=== PATIENT | female | born 1985 | race African-American/Black ===

== ENCOUNTER 2022-11-18 08:18 | Outpatient (REF) | payer OTHER, SELFPAY ==
[2022-11-18 12:16] LABS: MANUAL DIFF FLAG NO
[2022-11-18 12:24] LABS: Basophils Absolute Auto 0.1 X10*3/uL (0.0-0.2); Basophils Percent Auto 0.4 % (0-2); Eosinophils Absolute Auto 0.2 X10*3/uL (0.0-0.4); Eosinophils Percent Auto 1.4 % (0-4); Hemoglobin 11.4 g/dl (12.0-16.0); Imm Gran Abs Auto 0.04 X10*3/uL (0.00-0.03); Imm Gran Pct Auto 0.3 % (0.0-0.4); Lymphocytes Absolute Auto 2.9 X10*3/uL (1.2-4.9); Lymphocytes Percent Auto 24.8 % (20-40); Mean Corpuscular Hemoglobin 22.8 pg (27.0-33.0); Mean Platelet Volume 10.7 fL (9.4-12.3); Monocytes Absolute Auto 0.8 X10*3/uL (0.1-1.2); Monocytes Percent Auto 7.3 % (2-11); Neutrophils Absolute Auto 7.5 x10*3/uL (2.0-8.3); Neutrophils Percent Auto 65.8 % (45-73); Platelet Count 363 X10*3/uL (160-400); Red Cell Distribution Width 18.8 % (11.0-16.0); White Blood Count 11.5 X10*3/uL (4.8-10.8)
[2022-11-18 12:50] LABS: Alanine Aminotransferase 9 U/L (0-31); Albumin Level 3.9 g/dL (3.5-5.0); Alkaline Phosphatase 56 U/L (39-117); Anion Gap 13 (12-20); Aspartate Amino Transferase 14 U/L (5-31); Bilirubin Total 0.5 mg/dL (0.0-1.0); Blood Urea Nitrogen 10 mg/dL (9-16); Carbon Dioxide 25 mmol/L (22-29); Chloride 106 mmol/L (96-108); Cholesterol 206 mg/dL; Estimated Glomerular Filt Rate > 60; Glucose Fasting 122 mg/dL (60-99); HDL Cholesterol 44 mg/dL; LDL Cholesterol Calculated 143 mg/dl; Potassium 4.2 mmol/L (3.3-5.1); Sodium 140 mmol/L (135-145); Total Protein 7.6 g/dL (6.5-8.0); Triglycerides 98 mg/dL
== END 2022-11-18 08:19 | disposition home or self-care (01) ==
LOC: HO.HMGCLDS 08:18
PROVIDERS: PCP Internal Medicine; Visit Provider Internal Medicine
DX: Z00.01 Encounter for general adult medical examination with abnormal findings (principal); E66.09 Other obesity due to excess calories; F84.0 Autistic disorder; Z11.1 Encounter for screening for respiratory tuberculosis
CPT/HCPCS: 36415; 80053; 80061; 84443; 85025

== ENCOUNTER 2022-11-20 09:18 | Outpatient (REF) | payer OTHER, SELFPAY ==
[2022-11-23 00:53] LABS: TS Negative Control Passed; TS Panel A 0; TS Panel B 0; TS Positive Control Passed; TSpotTB Negative (Negative)
== END 2022-11-20 09:19 | disposition home or self-care (01) ==
LOC: HO.HMGCLDS 09:18
PROVIDERS: PCP Internal Medicine; Visit Provider Internal Medicine
DX: Z11.1 Encounter for screening for respiratory tuberculosis (principal)
CPT/HCPCS: 36415; 86481

== ENCOUNTER 2023-08-30 08:27 | Outpatient (AMB) | payer OTHER, SELFPAY ==
--- NOTE | 2023-08-30 08:32 | A.OFFPC_ITS ---
Intake Visit Reasons: Dental Forms~ Allergies No Known Allergies Allergy (Verified 11/14/22 15:31) Medication List - Last Reconciled 08/30/23 by Juan Garzon MD No Known Home Meds Tobacco use date assessed: 11/14/22 HPI Dental Forms~ HPI Details Patient is 38-year-old female with autism, nonverbal She is in need of dental procedure due to gum disease Patient need clearance for that, and paperwork. This visit was created to update her history. Patient have no cardiac history, no fever no chills The only thing changed is her weight , she now we 206 lb Her last visit with me was October of last year, her weight was 226 at that time Forms are filled, information updated, we will fax it over to dental office. [facility] Social History Patient Tobacco Use Status: Never used Tobacco e-Cigarette/Vaping Use: Never Used Current occupational status: disabled Questionnaire Thrive Questionnaire Date Thrive assessed: 05/24/21 Review of Systems Const Denies chills and Denies fever(s) ENT Denies epistaxis and Denies nasal discharge Card Denies chest pain Resp Denies chest congestion, Denies cough and Denies hemoptysis GI Denies diarrhea and Denies nausea Skin/Breast Denies rash Neuro Reports no additional complaints Psych Reports no additional complaints Endo Reports no additional complaints Physical exam (Primary Care) Tobacco/Smoking Status: Tobacco use Status Tobacco use date assessed 11/14/22 08/30/23 08:35 Patient Tobacco Use Status Never used Tobacco 08/30/23 08:35 e-Cigarette/Vaping Use Never Used 08/30/23 08:35 Thrive Assessment: Date of Thrive Assessment Date Thrive assessed 05/24/21 08/30/23 08:35 Telehealth Telehealth Location of provider rendering services: practice address Location of patient: address on file Patient Identification confirmed using: Name, : Yes Telehealth method: voice only Patient verbally consented to treatment: Yes Patient verbally consented to billing insurance company: Yes Patient informed of any privacy concerns related to visit: Yes Minutes spent on Phone/Video with Pt.: 13 Assessment and Plan Assessment & Plan (1) Gum disease: Code(s): K06.9 - Disorder of gingiva and edentulous alveolar ridge, unspecified (2) Autism: Code(s): F84.0 - Autistic disorder (3) Nonverbal: Code(s): R47.01 - Aphasia Plan Patient is 38-year-old female with autism, nonverbal She is in need of dental procedure due to gum disease Patient need clearance for that, and paperwork. This visit was created to update her history. Patient have no cardiac history, no fever no chills The only thing changed is her weight , she now we 206 lb Her last visit with me was October of last year, her weight was 226 at that time Forms are filled, information updated, we will fax it over to dental office. Coding Level of Care Code Tele Est Pt Level 3 (70827) Diagnoses Gum disease K06.9 Autism F84.0 Nonverbal R47.01
== END 2023-08-30 15:52 | disposition home or self-care (01) ==
LOC: HO.HMGC 08:27
PROVIDERS: PCP Internal Medicine; Visit Provider Internal Medicine
DX: K06.9 Disorder of gingiva and edentulous alveolar ridge, unspecified (principal); R47.01 Aphasia
CPT/HCPCS: 99213

== ENCOUNTER 2023-11-20 15:21 | Outpatient (AMB) | payer OTHER, SELFPAY ==
--- NOTE | 2023-11-20 15:28 | A.OFFPC_ITS ---
Vital Signs 11/20/23 15:29 Height 5 ft 7 in Weight 230 lb 2 oz BMI 36.0 BP 126/78 Blood Pressure Location Rt brachial Position Sitting Pulse 84 Pulse Source Pulse Oximeter Pulse Oximetry (%) 99 Oxygen Delivery Method Room Air Intake Visit Reasons: PE Allergies No Known Allergies Allergy (Verified 11/14/22 15:31) Medication List - Last Reconciled 11/20/23 by Juan Garzon MD No Known Home Meds Tobacco use date assessed: 11/20/23 Dental Screening Dental Screen Date: 11/20/23 Did you have a dental visit in the last 12 months?: Yes Did you have a dental problem in the last 6 months where you did not have access to dental care?: No Was dental information given to patient?: Patient has dentist HPI PE HPI Details Patient is a 38-year-old female with autism and is nonverbal came in today for her physical examination with her mother Last year patient had labs her fasting sugar was elevated We will be repeating labs again, mother was notified of the results It is difficult for patient to go through a gynecological exam, she declined to do breast exam as well Her mother feels that we can hold onto gynecological exam for now They do take family trips and mother is requesting few tablets of lorazepam so it is easier for her to handle patient has tantrums during those visits Thirty tablets sent, side effect of medication reviewed with the mother including risk of fall Patient's BMI is elevated, it is difficult for her to lose weight Patient will return in 1 year for follow-up or earlier depending on lab reports. [facility] Social History Housing: House Patient Tobacco Use Status: Never used Tobacco e-Cigarette/Vaping Use: Never Used service: No Current occupational status: disabled Cognitive needs: No Hearing needs: No Vision needs: No Questionnaire PHQ-9 Over the last 2 weeks, how often have you been bothered by any of the following problems? 1. Little interest or pleasure in doing things: not at all 2. Feeling down, depressed, or hopeless: not at all 3. Trouble falling or staying asleep, or sleeping too much: not at all 4. Feeling tired or having little energy: not at all 5. Poor appetite or overeating: not at all 6. Feeling bad about yourself - or that you are a failure or have let yourself or your family down: not at all 7. Trouble concentrating on things, such as reading the newspaper or watching television: not at all 8. Moving or speaking so slowly that other people could have noticed. Or the opposite - being so fidgety or restless that you have been moving around a lot more than usual: not at all 9. Thoughts that you would be better off or of hurting yourself in some way: not at all Total score: 0 Depression Screening Interpretation: Negative Depression Screening Done: Yes 00010 - PHQ-9 Billing: Yes Source: Developed by Drs. Urbano Smith, Jaelyn Grover, Selvin Arnett and colleagues, with an educational patricia from [employer]. Thrive Questionnaire Date Thrive assessed: 11/20/23 I am a: Patient What is your living situation today?: I have a steady place to live Within the past 12 months, did the food you bought not last and you didn't have the money to get more?: Often true Within the past 12 months, did you worry whether your food would run out before you got money to buy more?: Never true Do you have trouble paying for medicines?: No Do you have trouble getting transportation to medical appointments?: No Do you have trouble paying your heating and electricity bill?: No Do you have trouble taking care of your child, family member or friend?: No Do you have trouble with day-to-day activities such as bathing, preparing meals, shopping, managing finances, etc.?: No Are you currently unemployed and looking for a job?: No Are you interested in more education?: No Please select the resources that you would like help with: None Currently or been in a relationship where the following occur: no concerns reported THRIVE Score: 1 AUDIT C Alcohol Use Questionnaire (AUDIT-C) 1. How often do you have a drink containing alcohol?: Never 3. How often do you have six or more drinks on one occasion?: Never Total Score: 0 Score Reviewed/Action Taken: Yes ALYCIA-7 AMB Questionnaire ALYCIA-7 Date ALYCIA - 7 assessed: 11/20/23 Feeling nervous, anxious, or on edge: 0 = Not at all Not being able to stop or control worryin = Not at all Worrying too much about different things: 0 = Not at all Trouble relaxin = Not at all Being so restless that it is hard to sit still: 0 = Not at all Becoming easily annoyed or irritable: 0 = Not at all Feeling afraid as if something awful might happen: 0 = Not at all Total ALYCIA-7 score (0-4 normal; 5-9 mild; 10-14 moderate; 15-21 severe): 0 Source: Developed by Drs. Urbano Smith, Jaelyn Grover, Selvin Arnett and colleagues, with an educational patricia from [employer]. ALYCIA-7 Assessment Billing ALYCIA-7 Assessment Tool: ALYCIA-7 Assessment 80371 Review of Systems Const Denies chills and Denies fever(s) ENT Denies epistaxis and Denies nasal discharge Card Denies chest pain Resp Denies chest congestion, Denies cough and Denies hemoptysis GI Denies diarrhea and Denies nausea Skin/Breast Denies rash Neuro Reports no additional complaints Psych Reports no additional complaints Endo Reports no additional complaints Physical exam (Primary Care) Vital Signs: Last Vital Signs Pulse 84 11/20/23 15:29 BP 126/78 11/20/23 15:29 Pulse Ox 99 11/20/23 15:29 Oxygen Delivery Method Room Air 11/20/23 15:29 BMI result Body Mass Index 36.0 Tobacco/Smoking Status: Tobacco use Status Tobacco use date assessed 11/20/23 11/20/23 15:34 Patient Tobacco Use Status Never used Tobacco 11/20/23 15:34 e-Cigarette/Vaping Use Never Used 11/20/23 15:34 PHQ-9: PHQ-9 Score PHQ-9: Total score 0 11/20/23 15:51 Depression Screening Interpretation: Negative Thrive Assessment: Date of Thrive Assessment Date Thrive assessed 11/20/23 11/20/23 15:51 Currently or been in a relationship where the following occur: no concerns reported Const Other: Nonverbal, not very cooperative, did not let me do abdominal exam or breast exams, exam is limited General: comfortable and no acute distress HENMT Head: Yes normocephalic Eyes General: appearance normal, both eyes and all related structures Neck Neck: Yes supple Resp Effort & Inspection: normal respiratory effort, no cough and no stridor Cardio Rhythm: regular rhythm Heart sounds: S1 normal heart sound present and S2 normal heart sound present Skin General skin exam: turgor normal Neuro General: tone normal and moves all extremities Extrem Right lower extremity: no edema Left lower extremity: no edema Assessment and Plan Assessment & Plan (1) Encounter for general adult medical examination with abnormal findings: Code(s): Z00.01 - Encounter for general adult medical examination with abnormal findings (2) Gum disease: Code(s): K06.9 - Disorder of gingiva and edentulous alveolar ridge, unspecified (3) Nonverbal: Code(s): R47.01 - Aphasia (4) Obesity due to excess calories: Code(s): E66.09 - Other obesity due to excess calories Qualifiers: Obesity classification: adult class 2 (BMI 35 - 39.9) Serious obesity comorbidity presence: without serious comorbidity Body mass index: BMI 36.0- 36.9 Qualified Code(s): E66.09 - Other obesity due to excess calories; Z68.36 - Body mass index [BMI] 36.0-36.9, adult (5) Autism: Code(s): F84.0 - Autistic disorder (6) Impaired fasting blood sugar: Code(s): R73.01 - Impaired fasting glucose (7) Screening-pulmonary TB: Code(s): Z11.1 - Encounter for screening for respiratory tuberculosis Plan Patient is a 38-year-old female with autism and is nonverbal came in today for her physical examination with her mother Last year patient had labs her fasting sugar was elevated We will be repeating labs again, mother was notified of the results It is difficult for patient to go through a gynecological exam, she declined to do breast exam as well Her mother feels that we can hold onto gynecological exam for now They do take family trips and mother is requesting few tablets of lorazepam so it is easier for her to handle patient has tantrums during those visits Thirty tablets sent, side effect of medication reviewed with the mother including risk of fall Patient's BMI is elevated, it is difficult for her to lose weight Patient will return in 1 year for follow-up or earlier depending on lab reports. Orders: Orders Comprehensive [place]. Panel Fast Today E66.09 - Other obesity due to excess calories, F84.0 - Autistic disorder, K06.9 - Disorder of gingiva and edentulous alveolar ridge, unspecified, R47.01 - Aphasia, R73.01 - Impaired fasting glucose, Z00.01 - Encounter for general adult medical examination with abnormal findings Lipid Panel Today E66.09 - Other obesity due to excess calories, F84.0 - Autistic disorder, K06.9 - Disorder of gingiva and edentulous alveolar ridge, unspecified, R47.01 - Aphasia, R73.01 - Impaired fasting glucose, Z00.01 - Encounter for general adult medical examination with abnormal findings Hemoglobin A1c Today E66.09 - Other obesity due to excess calories, F84.0 - Autistic disorder, K06.9 - Disorder of gingiva and edentulous alveolar ridge, unspecified, R47.01 - Aphasia, R73.01 - Impaired fasting glucose, Z00.01 - Encounter for general adult medical examination with abnormal findings T Spot TB Today Z11.1 - Encounter for screening for respiratory tuberculosis Complete Blood Count Auto Diff Today E66.09 - Other obesity due to excess calories, F84.0 - Autistic disorder, K06.9 - Disorder of gingiva and edentulous alveolar ridge, unspecified, R47.01 - Aphasia, R73.01 - Impaired fasting glucose, Z00.01 - Encounter for general adult medical examination with abnormal findings Medications: New lorazepam 0.5 mg PO DAILY PRN 30 tabs 0RF anxiety Coding Level of Care Code Est Pt Prev Care 18-39y(33432) Diagnoses Encounter for general adult medical examination with abnormal findings Z00.01 Gum disease K06.9 Nonverbal R47.01 Class 2 obesity due to excess calories without serious comorbidity with body mass index (BMI) of 36.0 to 36.9 in adult E66.09; Z68.36 Obesity classification: adult class 2 (BMI 35 - 39.9) Serious obesity comorbidity presence: without serious comorbidity Body mass index: BMI 36.0-36.9 Autism F84.0 Impaired fasting blood sugar R73.01 Screening-pulmonary TB Z11.1 Additional Codes ALYCIA-7 Assessment Billing - ALYCIA-7 Assessment Tool: ALYCIA-7 Assessment [id number] ([id number])
[2023-11-20 15:29] VITALS: BP 126/78; PULSE 84; O2SAT 99; BMI 36.0
== END 2023-11-20 16:00 | disposition home or self-care (01) ==
LOC: HO.HMGC 15:21
PROVIDERS: PCP Internal Medicine; Visit Provider Internal Medicine
DX: Z00.00 Encounter for general adult medical examination without abnormal findings (principal); K06.9 Disorder of gingiva and edentulous alveolar ridge, unspecified; E66.09 Other obesity due to excess calories; Z68.36 Body mass index [BMI] 36.0-36.9, adult; R47.01 Aphasia; F84.0 Autistic disorder; R73.01 Impaired fasting glucose; Z11.1 Encounter for screening for respiratory tuberculosis
CPT/HCPCS: 99395

== ENCOUNTER 2024-05-06 14:55 | Outpatient (AMB) | payer OTHER, SELFPAY ==
--- NOTE | 2024-05-06 14:59 | MHC.OFFWIV ---
Intake Vital Signs 05/06/24 15:01 Height 5 ft 7 in Weight 233 lb BMI 36.5 BP 132/88 Blood Pressure Location Lt brachial Position Sitting Pulse 92 Pulse Source Pulse Oximeter Temp 97.0 F Temp Source Temporal Artery Scan Pulse Oximetry (%) 98 Oxygen Delivery Method Room Air Intake Visit Reasons: EP RT foot swelling/bruised top/red between toes Intake Note: pt c/o RT foot swollen and bruised. Patient Tobacco Use Status: Never used Tobacco Allergies No Known Allergies Allergy (Verified 05/06/24 15:15) Do you need a note to return to daycare/school/sports/work: No HPI HPI Comments History of Present Illness Details This is a 38-year-old female with a past medical history of autism who was nonverbal presenting with her mother for evaluation of lesions on the plantar surface of her right foot that were 1st noted last Sunday. There is no report of injury or trauma to the right foot and the patient is not having any difficulty ambulating. The patient's mother has not used any [id number] medication for treatment of these lesions. [facility] Social History Housing: House Patient Tobacco Use Status: Never used Tobacco e-Cigarette/Vaping Use: Never Used service: No Current occupational status: disabled Cognitive needs: No Hearing needs: No Vision needs: No Review of Systems Const Other (Patient has autism and is non.verbal.) Physical Exam Vital Signs: Last Vital Signs Pulse 92 05/06/24 15:01 BP 132/88 05/06/24 15:01 Pulse Ox 98 05/06/24 15:01 Oxygen Delivery Method Room Air 05/06/24 15:01 BMI result Body Mass Index 36.5 Const General: cooperative, healthy appearing, comfortable, no acute distress, well developed, alert, awake and Physically active; No ill appearing Nutritional Appearance: overweight Orientation/consciousness: Other orientation findings (non.verbal) Limitations: no limitations and other limitations (Autism) Skin Other: Macerated hypopigmented lesions and ulcerations on an erythematous base on the planter surface of the right distal foot and web spaces between digits 2-3, 3-4 and 4-5. Non.tender to direct examination. No lesions noted on dorsal surface of the right foot. Extrem Other: Ambulating independently; no pain to examination of the right foot or digits of the right foot. Assessment & Plan Assessment & Plan (1) Tinea pedis: Comment: Patient's examination is consistent with a tinea pedis of the right foot will be prescribed clotrimazole. Code(s): B35.3 - Tinea pedis Qualifiers: Laterality: right Qualified Code(s): B35.3 - Tinea pedis Plan: Clotrimazole 1% b.i.d. x4 weeks. Medications: New clotrimazole 1% Apply to affected areas on right foot twice daily for four weeks. 1 appl topical BID 45 grams 1RF Coding Level of Care Code Est Pt Level 3 (36579) Diagnoses Tinea pedis of right foot B35.3 Laterality: right Time Spent (min) 20
[2024-05-06 15:01] VITALS: BP 132/88; PULSE 92; TEMP 36.1; O2SAT 98; BMI 36.5
== END 2024-05-06 15:45 | disposition home or self-care (01) ==
PROVIDERS: PCP Internal Medicine; Visit Provider Physician Assistant
DX: B35.3 Tinea pedis (principal)

== ENCOUNTER → 2024-05-06 14:55 | Outpatient (BNVA) | payer OTHER, SELFPAY | PROVIDERS: PCP Internal Medicine | DX: B35.3 Tinea pedis (principal) | CPT/HCPCS: 99212 ==

== ENCOUNTER 2024-12-19 14:33 | Outpatient (REF) | payer OTHER, SELFPAY ==
[2024-12-19 16:01] LABS: MANUAL DIFF FLAG NO
[2024-12-19 16:18] LABS: Basophils Absolute Auto 0.1 X10*3/uL (0.0-0.2); Basophils Percent Auto 0.5 % (0-2); Eosinophils Absolute Auto 0.2 X10*3/uL (0.0-0.4); Eosinophils Percent Auto 1.5 % (0-4); Hematocrit 35.7 % (37.0-47.0); Hemoglobin 10.6 g/dl (12.0-16.0); Imm Gran Abs Auto 0.07 X10*3/uL (0.00-0.03); Imm Gran Pct Auto 0.5 % (0.0-0.4); Lymphocytes Absolute Auto 4.7 X10*3/uL (1.2-4.9); Lymphocytes Percent Auto 31.7 % (20-40); Mean Corpuscular HGB Conc 29.7 g/dl (31.0-35.0); Mean Corpuscular Hemoglobin 21.1 pg (27.0-33.0); Monocytes Absolute Auto 1.4 X10*3/uL (0.1-1.2); Monocytes Percent Auto 9.4 % (2-11); Neutrophils Absolute Auto 8.4 x10*3/uL (2.0-8.3); Neutrophils Percent Auto 56.4 % (45-73); Platelet Count 332 X10*3/uL (160-400); Red Blood Count 5.03 X10*6/uL (4.20-5.50); White Blood Count 14.9 X10*3/uL (4.8-10.8)
[2024-12-19 16:22] LABS: Estimated Average Glucose 146 mg/dL; Hemoglobin A1C 138.4312 umol/L; Hemoglobin A1c % 6.7 % (<6.0); Total Hemoglobin (HGBA1C) 2803.2599 umol/L
[2024-12-19 16:46] LABS: Alanine Aminotransferase 11 U/L (0-31); Albumin Level 4.1 g/dL (3.5-5.0); Anion Gap 12 (12-20); Aspartate Amino Transferase 17 U/L (5-31); Bilirubin Total 0.1 mg/dL (0.0-1.0); Blood Urea Nitrogen 10 mg/dL (9-16); Calcium 9.6 mg/dL (8.4-10.2); Carbon Dioxide 26 mmol/L (22-29); Chloride 105 mmol/L (96-108); Estimated Glomerular Filt Rate > 60; Glucose Random 119 mg/dL (60-115); Potassium 3.7 mmol/L (3.3-5.1); Sodium 139 mmol/L (135-145); Total Protein 8.3 g/dL (6.5-8.0)
[2024-12-19 16:49] LABS: Alkaline Phosphatase 63 U/L (39-117)
[2024-12-19 16:59] LABS: TSH reflex Free T4 3.55 uIU/mL (0.32-4.0)
[2024-12-20 07:29] LABS: LDL Cholesterol Direct 135 mg/dL (<100)
[2024-12-24 14:43] LABS: Vitamin D 25-OH, D2 <4 ng/mL; Vitamin D 25-OH, D3 20 ng/mL; Vitamin D 25-OH, Total 20 ng/mL (30-100)
== END 2024-12-19 14:34 | disposition home or self-care (01) ==
LOC: HO.HMGCLDS 14:33
PROVIDERS: PCP Internal Medicine; Visit Provider Internal Medicine
DX: Z00.01 Encounter for general adult medical examination with abnormal findings (principal); R73.01 Impaired fasting glucose; E66.09 Other obesity due to excess calories; Z68.36 Body mass index [BMI] 36.0-36.9, adult; F84.0 Autistic disorder; M79.671 Pain in right foot; M79.672 Pain in left foot
CPT/HCPCS: 36415; 80053; 82306; 83036; 83721; 84443; 85025; 96127; 99396

== ENCOUNTER 2024-12-19 14:33 | Outpatient (AMB) | payer OTHER, SELFPAY ==
[2024-12-19 14:33] VITALS: BP 136/84; PULSE 90; O2SAT 98; BMI 35.7
--- NOTE | 2024-12-19 14:33 | A.OFFPC_ITS ---
Vital Signs 12/19/24 14:33 Height 5 ft 7 in Weight 228 lb BMI 35.7 BP 136/84 Blood Pressure Location Rt brachial Position Sitting Pulse 90 Pulse Source Pulse Oximeter Pulse Oximetry (%) 98 Oxygen Delivery Method Room Air Intake Visit Reasons: Annual pe Golf Caddy Required: No Accompanied by: Self / Same As Patient Allergies No Known Allergies Allergy (Verified 12/19/24 14:33) Medication List - Last Reconciled 12/19/24 by Juan Garzon MD clotrimazole 1% 1 appl topical BID lorazepam 0.5 mg PO DAILY PRN Tobacco use date assessed: 12/19/24 Dental Screening Dental Screen Date: 12/19/24 Did you have a dental visit in the last 12 months?: Yes Did you have a dental problem in the last 6 months where you did not have access to dental care?: No Was dental information given to patient?: Patient has dentist HPI Annual pe HPI Details History of Present Illness - The patient is a 39-year-old female no n verbal with history of autism presenting for a wellness visit and preventive screenings. With her mother - During the visit, discussions involved the patient's first mammogram, emphasizing compliance difficulties due to required breath-holding and stillnes s. Patient is autistic and it might be difficult - There were challenges observed in comp liance with internal pelvic exams, with a mention of the patient's resistance and need for sedation during dental procedures. - Foot pain was noted to occur during wa lking, especially after walking half a mile. Potential causes were considered, such as walking on tippy toes. - The patient exhibits protective behavi ors during breast examination, limiting assessment capabilities. Health Maintenance - Mammogram ordered as the patient is du e for her first screening at age 39. - Discussion occurred on the importance of standing still and breath-holding during the mammogram procedure. - Consideration of foot care with potent ial recommendation adjustments to footwear for better support. - BMI is elevated need to lose weight Patient Instructions - Change shoes to ones with more support and cushioning. - see a foot doctor evaluation if pain during walking persists. - Proceed with lab tests that have been ordered. - Follow through with scheduling the [facility] mogram and attend alongside support for better compliance. Review of Systems Difficult to access as patient is nonverbal Physical Exam General: Cooperative, healthy appearing, comfortable, no acute distress Orientation: Recognizes mother Head: Normal to inspection Ears: Within normal limit visually Nose: Normal external nose present Eyes: Appearance normal, extraocular movement intact pupils reactive Neck: Normal visual inspection and supple Respiratory: Normal respiratory effort , patient is not taking deep breaths on command Cardiovascular: S1 and S2 RRR GI: Normal to inspection. Soft to palpation and nontender Skin: Turgor normal, no acute findings Neuro: Nonfocal Extremities: Normal to inspection, foot exam reveals no abnormality over the soles [facility] Surgical History No pertinent past surgical history Social History Housing: House Patient Tobacco Use Status: Never used Tobacco e-Cigarette/Vaping Use: Never Used service: No Current occupational status: disabled Cognitive needs: No Hearing needs: No Vision needs: No Questionnaire PHQ-9 Over the last 2 weeks, how often have you been bothered by any of the following problems? 1. Little interest or pleasure in doing things: not at all 2. Feeling down, depressed, or hopeless: not at all 3. Trouble falling or staying asleep, or sleeping too much: not at all 4. Feeling tired or having little energy: not at all 5. Poor appetite or overeating: not at all 6. Feeling bad about yourself - or that you are a failure or have let yourself or your family down: not at all 7. Trouble concentrating on things, such as reading the newspaper or watching television: not at all 8. Moving or speaking so slowly that other people could have noticed. Or the opposite - being so fidgety or restless that you have been moving around a lot more than usual: not at all 9. Thoughts that you would be better off or of hurting yourself in some way: not at all Total score: 0 Depression Screening Interpretation: Negative Depression Screening Done: Yes 75044 - PHQ-9 Billing: Yes Source: Developed by Drs. Urbano Smith, Jaelyn Grover, Selvin Arnett and colleagues, with an educational patricia from [employer]. Thrive Questionnaire Date Thrive assessed: 12/19/24 I am a: Patient What is your living situation today?: I have a steady place to live Within the past 12 months, did the food you bought not last and you didn't have the money to get more?: Often true Within the past 12 months, did you worry whether your food would run out before you got money to buy more?: Never true Do you have trouble paying for medicines?: No Do you have trouble getting transportation to medical appointments?: No Do you have trouble paying your heating and electricity bill?: No Do you have trouble taking care of your child, family member or friend?: No Do you have trouble with day-to-day activities such as bathing, preparing meals, shopping, managing finances, etc.?: No Are you currently unemployed and looking for a job?: No Are you interested in more education?: No Please select the resources that you would like help with: None THRIVE Score: 1 AUDIT C Alcohol Use Questionnaire (AUDIT-C) 1. How often do you have a drink containing alcohol?: Never 3. How often do you have six or more drinks on one occasion?: Never Total Score: 0 Score Reviewed/Action Taken: Yes ALYCIA-7 AMB Questionnaire ALYCIA-7 Date ALYCIA - 7 assessed: 12/19/24 Feeling nervous, anxious, or on edge: 0 = Not at all Not being able to stop or control worryin = Not at all Worrying too much about different things: 0 = Not at all Trouble relaxin = Not at all Being so restless that it is hard to sit still: 0 = Not at all Becoming easily annoyed or irritable: 0 = Not at all Feeling afraid as if something awful might happen: 0 = Not at all Total ALYCIA-7 score (0-4 normal; 5-9 mild; 10-14 moderate; 15-21 severe): 0 Source: Developed by Drs. Urbano Smith, Jaelyn Grover, Selvin Arnett and colleagues, with an educational patricia from [employer]. ALYCIA-7 Assessment Billing ALYCIA-7 Assessment Tool: ALYCIA-7 Assessment 99830 Physical exam (Primary Care) Vital Signs: Last Vital Signs Pulse 90 12/19/24 14:33 BP 136/84 12/19/24 14:33 Pulse Ox 98 12/19/24 14:33 Oxygen Delivery Method Room Air 12/19/24 14:33 BMI result Body Mass Index 35.7 Tobacco/Smoking Status: Tobacco use Status Tobacco use date assessed 12/19/24 12/19/24 14:38 Patient Tobacco Use Status Never used Tobacco 12/19/24 14:38 e-Cigarette/Vaping Use Never Used 12/19/24 14:38 PHQ-9: PHQ-9 Score PHQ-9: Total score 0 12/19/24 14:38 Depression Screening Interpretation: Negative Thrive Assessment: Date of Thrive Assessment Date Thrive assessed 12/19/24 12/19/24 14:38 Coding Level of Care Code Est Pt Level 3 (39825) Est Pt Prev Care 40-64y(54904) Diagnoses Encounter for general adult medical examination with abnormal findings Z00.01 Impaired fasting blood sugar R73.01 Class 2 obesity due to excess calories without serious comorbidity with body mass index (BMI) of 36.0 to 36.9 in adult E66.09; Z68.36 Body mass index: BMI 36.0-36.9 Obesity classification: adult class 2 (BMI 35 - 39.9) Serious obesity comorbidity presence: without serious comorbidity Autism F84.0 Bilateral foot pain M79.671; M79.672 Additional Codes ALYCIA-7 Assessment Billing - ALYCIA-7 Assessment Tool: ALYCIA-7 Assessment 30981 ([id number]) PHQ-9 - 08608 - PHQ-9 Billing: Yes ([id number]) Assessment & Plan Assessment & Plan (1) Encounter for general adult medical examination with abnormal findings: Code(s): Z00.01 - Encounter for general adult medical examination with abnormal findings Category: Medical (2) Impaired fasting blood sugar: Code(s): R73.01 - Impaired fasting glucose Category: Medical (3) Obesity due to excess calories: Code(s): E66.09 - Other obesity due to excess calories Category: Medical Qualifiers: Body mass index: BMI 36.0-36.9 Obesity classification: adult class 2 (BMI 35 - 39.9) Serious obesity comorbidity presence: without serious comorbidity Qualified Code(s): E66.09 - Other obesity due to excess calories; Z68.36 - Body mass index [BMI] 36.0-36.9, adult (4) Autism: Code(s): F84.0 - Autistic disorder Category: Medical (5) Bilateral foot pain: Code(s): M79.671 - Pain in right foot; M79.672 - Pain in left foot Category: Medical Plan History of Present Illness - The patient is a 39-year-old female non verbal with history of autism presenting for a wellness visit and preventive screenings. With her mother - During the visit, discussions involved the patient's first mammogram, emphasizing compliance difficulties due to required breath-holding and stillness. Patient is autistic and it might be difficult - There were challenges observed in compliance with internal pelvic exams, with a mention of the patient's resistance and need for sedation during dental procedures. - Foot pain was noted to occur during walking, especially after walking half a mile. Potential causes were considered, such as walking on tippy toes. - The patient exhibits protective behaviors during breast examination, limiting assessment capabilities. Health Maintenance - Mammogram ordered as the patient is due for her first screening at age 39. - Discussion occurred on the importance of standing still and breath-holding during the mammogram procedure. - Consideration of foot care with potential recommendation adjustments to footwear for better support. - BMI is elevated need to lose weight - breast exam declined Patient Instructions - Change shoes to ones with more support and cushioning. - see a foot doctor evaluation if pain during walking persists. - Proceed with lab tests that have been ordered. - Follow through with scheduling the mammogram and attend alongside support for better compliance. Orders: Orders Complete Blood Count Auto Diff Today E66.09 - Other obesity due to excess calories, R73.01 - Impaired fasting glucose, Z00.01 - Encounter for general adult medical examination with abnormal findings, Z68.36 - Body mass index [BMI] 36.0-36.9, adult Vitamin D 25-OH (D2 and D3) Today E66.09 - Other obesity due to excess calories, R73.01 - Impaired fasting glucose, Z00.01 - Encounter for general adult medical examination with abnormal findings, Z68.36 - Body mass index [BMI] 36.0-36.9, adult Comprehensive Met. Panel Today E66.09 - Other obesity due to excess calories, F84.0 - Autistic disorder, R73.01 - Impaired fasting glucose, Z00.01 - Encounter for general adult medical examination with abnormal findings, Z68.36 - Body mass index [BMI] 36.0-36.9, adult LDL Cholesterol Direct Today E66.09 - Other obesity due to excess calories, F84.0 - Autistic disorder, R73.01 - Impaired fasting glucose, Z00.01 - Encounter for general adult medical examination with abnormal findings, Z68.36 - Body mass index [BMI] 36.0-36.9, adult TSH reflex Free T4 Today E66.09 - Other obesity due to excess calories, R73.01 - Impaired fasting glucose, Z00.01 - Encounter for general adult medical examination with abnormal findings, Z68.36 - Body mass index [BMI] 36.0-36.9, adult Hemoglobin A1c Today E66.09 - Other obesity due to excess calories, R73.01 - Impaired fasting glucose, Z00.01 - Encounter for general adult medical examination with abnormal findings, Z68.36 - Body mass index [BMI] 36.0-36.9, adult MM tomosynthesis screening BI Today Z12.31 - Encounter for screening mammogram for malignant neoplasm of breast
== END 2024-12-19 14:51 | disposition home or self-care (01) ==
LOC: HO.HMCC 14:33
PROVIDERS: PCP Internal Medicine; Visit Provider Internal Medicine
DX: Z00.00 Encounter for general adult medical examination without abnormal findings (principal); F84.0 Autistic disorder; M79.671 Pain in right foot; M79.672 Pain in left foot; R73.01 Impaired fasting glucose; E66.09 Other obesity due to excess calories; Z68.36 Body mass index [BMI] 36.0-36.9, adult

== ENCOUNTER 2024-12-25 08:54 | Outpatient (AMB) | payer OTHER, SELFPAY ==
--- NOTE | 2024-12-25 09:17 | A.OFFPC_ITS ---
Intake Visit Reasons: Discuss Labs Allergies No Known Allergies Allergy (Verified 12/25/24 09:17) Medication List - Last Reconciled 12/25/24 by Juan Garzon MD clotrimazole 1% 1 appl topical BID lorazepam 0.5 mg PO DAILY PRN Tobacco use date assessed: 12/25/24 Dental Screening Dental Screen Date: 12/25/24 Did you have a dental visit in the last 12 months?: No Did you have a dental problem in the last 6 months where you did not have access to dental care?: No Was dental information given to patient?: Patient has dentist HPI Discuss Labs HPI Details History - The patient is a 39-year-old female pr esenting with anemia management concerns. - Initial lab work in November 2022 showed a hemoglobin level of 11.4 g/dL, which has decreased to 10.6 g/dL recently. - The patient has a history of heavy men strual periods, which may contribute to the anemia. - Type 2 Diabetes Mellitus was identifie d with a hemoglobin A1C of 6.7%. - The patient was recently found to have a Vitamin D deficiency. Problem List - Anemia - Type 2 Diabetes Mellitus - Vitamin D Deficiency Patient Instructions - Begin taking iron supplements twice da daniel as directed, once in the morning and once in the afternoon. - Avoid dairy products when taking iron supplements; take with vitamin C to improve absorption. - Start Vitamin D3 supplements, one ever y day. - Attempt to lose weight as it may help improve management of diabetes. - Plan to repeat blood tests in three mo nths to monitor hemoglobin and blood glucose levels. Review of Systems - General: No fever no chills - Neurological: No headaches no dizziness - Ear nose throat: No sore throat no hearing difficulty no ear pain - Cardiovascular: No syncope, no chest pain, no palpitations - Gastrointestinal: No nausea vomiting or diarrhea - Endocrine: No polyuria polydipsia no heat intolerance - Genitourinary: No dysuria , no blood in urine [facility] Surgical History No pertinent past surgical history Social History Housing: House Patient Tobacco Use Status: Never used Tobacco e-Cigarette/Vaping Use: Never Used service: No Current occupational status: disabled Cognitive needs: No Hearing needs: No Vision needs: No Questionnaire Thrive Questionnaire Date Thrive assessed: 12/19/24 AUDIT C Alcohol Use Questionnaire (AUDIT-C) 1. How often do you have a drink containing alcohol?: Never 3. How often do you have six or more drinks on one occasion?: Never Total Score: 0 Score Reviewed/Action Taken: Yes ALYCIA-7 AMB Questionnaire ALYCIA-7 Date ALYCIA - 7 assessed: 12/19/24 Source: Developed by Drs. Urbano Smith, Jaelyn Grover, Selvin Arnett and colleagues, with an educational patricia from [employer] Physical exam (Primary Care) Tobacco/Smoking Status: Tobacco use Status Tobacco use date assessed 12/25/24 12/25/24 09:17 Patient Tobacco Use Status Never used Tobacco 12/25/24 09:17 e-Cigarette/Vaping Use Never Used 12/25/24 09:17 Thrive Assessment: Date of Thrive Assessment Date Thrive assessed 12/19/24 12/25/24 09:17 Telehealth Telehealth Telehealth Platform: [facility] Location of provider rendering services: practice address Location of patient: address on file Patient Identification confirmed using: Name, : Yes Telehealth method: voice only Patient verbally consented to treatment: Yes Patient verbally consented to billing insurance company: Yes Patient informed of any privacy concerns related to visit: Yes Minutes spent on Phone/Video with Pt.: 12 Coding Level of Care Code Tele Est Pt Level 3 (87476) Diagnoses Iron deficiency anemia due to chronic blood loss D50.0 Iron deficiency anemia type: chronic blood loss Menorrhagia with regular cycle N92.0 Menorrhagia type: with regular cycle Type 2 diabetes mellitus without complication, without long-term current use of insulin E11.9 Diabetes mellitus hotel night auditor insulin use: without hotel night auditor use Diabetes mellitus complication status: without complication Vitamin D deficiency E55.9 Assessment & Plan Assessment & Plan (1) Iron deficiency anemia: Code(s): D50.9 - Iron deficiency anemia, unspecified Category: Medical Qualifiers: Iron deficiency anemia type: chronic blood loss Qualified Code(s): D50.0 - Iron deficiency anemia secondary to blood loss (chronic) (2) Heavy menses: Code(s): N92.0 - Excessive and frequent menstruation with regular cycle Category: Medical Qualifiers: Menorrhagia type: with regular cycle Qualified Code(s): N92.0 - Excessi ve and frequent menstruation with regular cycle (3) Type 2 diabetes mellitus: Code(s): E11.9 - Type 2 diabetes mellitus without complications Category: Medical Qualifiers: Diabetes mellitus assisted insulin use: without hotel night auditor use Diabetes mellitus complication status: without complication Qualified Code(s): E11.9 - Type 2 diabetes mellitus without complications (4) Vitamin D deficiency: Code(s): E55.9 - Vitamin D deficiency, unspecified Category: Medical Plan History - The patient is a 39-year-old female presenting with anemia management concerns. - Initial lab work in November 2022 showed a hemoglobin level of 11.4 g/dL, which has decreased to 10.6 g/dL recently. - The patient has a history of heavy menstrual periods, which may contribute to the anemia. - Type 2 Diabetes Mellitus was identified with a hemoglobin A1C of 6.7%. - The patient was recently found to have a Vitamin D deficiency. Problem List - Anemia - Type 2 Diabetes Mellitus - Vitamin D Deficiency Patient Instructions - Begin taking iron supplements twice daily as directed, once in the morning and once in the afternoon. - Avoid dairy products when taking iron supplements; take with vitamin C to improve absorption. - Start Vitamin D3 supplements, one every day. - Attempt to lose weight as it may help improve management of diabetes. - Plan to repeat blood tests in three months to monitor hemoglobin and blood glucose levels. Orders: Orders Comprehensive Met. Panel 3 Months D50.9 - Iron deficiency anemia, unspecified, E11.9 - Type 2 diabetes mellitus without complications, E55.9 - Vitamin D deficiency, unspecified, N92.0 - Excessive and frequent menstruation with regular cycle Ferritin 3 Months D50.9 - Iron deficiency anemia, unspecified, E11.9 - Type 2 diabetes mellitus without complications, E55.9 - Vitamin D deficiency, unspecified, N92.0 - Excessive and frequent menstruation with regular cycle Hemoglobin A1c 3 Months D50.9 - Iron deficiency anemia, unspecified, E11.9 - Type 2 diabetes mellitus without complications, E55.9 - Vitamin D deficiency, unspecified, N92.0 - Excessive and frequent menstruation with regular cycle Complete Blood Count Auto Diff 3 Months D50.9 - Iron deficiency anemia, unspecified, E11.9 - Type 2 diabetes mellitus without complications, E55.9 - Vitamin D deficiency, unspecified, N92.0 - Excessive and frequent menstruation with regular cycle Medications: New ferrous sulfate 324 mg PO BID 180 tabs 0RF 90 days
== END 2024-12-25 15:23 | disposition home or self-care (01) ==
LOC: HO.HMCC 08:54
PROVIDERS: PCP Internal Medicine; Visit Provider Internal Medicine
DX: E11.9 Type 2 diabetes mellitus without complications (principal); D50.0 Iron deficiency anemia secondary to blood loss (chronic); N92.0 Excessive and frequent menstruation with regular cycle; E55.9 Vitamin D deficiency, unspecified

== ENCOUNTER → 2024-12-25 08:54 | Outpatient (BNVA) | payer OTHER, SELFPAY | PROVIDERS: PCP Internal Medicine; Visit Provider Internal Medicine ==